=== PATIENT | male | born 1950 | race Caucasian/White ===

== ENCOUNTER → 2017-09-06 09:05 | Outpatient (CLI) | payer MEDICARE, MEDICAID, SELFPAY ==
[2017-09-06 09:26] LABS: Blood Urea Nitrogen 23 mg/dL (7-18); Estimated Glomerular Filt Rate 30 ml/min (>60); GFR (African American) 37 ML/MIN (>60)
--- NOTE | 2017-09-06 09:35 | MR_ITS ---
MR lumbar spine wo/w con, MR 3-d myelogram/MRCP HISTORY: PT states Low back pain X years. Prior surgery in 98'. Bilateral Leg pain, numbness, and tingling. ITS.REASON: FAILED BACK SYNDROME OF LUMBAR SPINE ORDERING PHYSICIAN: Surjit Maxwell PATIENT AGE: 66 years Comparison: None TECHNIQUE: Standard multiplanar multiecho sequences are performed without and with gadolinium enhancement. 3-D MIP and myelographic images are also rendered and reviewed FINDINGS: There is normal alignment. Prior posterior fusion with interpedicular screws at L4-L5 and S1 with disc spacers at L4-5 and L5-S1. Significant artifact is present from the surgical hardware injury evaluation at those levels. Spinal cord ends at the L1 level. T11-T12, T12-L1, L1-L2 to have an unremarkable appearance. L2-L3: Minimal concentric bulging disc. Mild facet and ligamentum flavum hypertrophy with mild disc desiccation. L3-L4: Mild degenerative disc disease with bulging disc along with facet hypertrophic change. There is transverse canal stenosis of 10 mm with moderate bilateral lateral recess narrowing on the left and mild right lateral recess narrowing. L4-L5: Artifact or prior surgery. L5-S1: Artifact from prior surgery No obvious enhancing lesions are evident. IMPRESSION: 1. Postsurgical changes of prior posterior fusion at L4-5 and L5-S1 with with significant artifact. 2. Degenerative disc disease with bulging disc at L3-L4 along with facet hypertrophic change with transverse canal stenosis of 10 mm with moderate bilateral lateral recess narrowing with moderate bilateral foraminal narrowing left greater than right. 3. No obvious enhancing abnormalities evident
--- NOTE | 2017-09-06 12:32 | HMH.ITSHM ---
CLONIDINE HYDRALAZINE AMITRIPTYLINE LISINOPRIL CLONAZEPAM SERTRALINE ATORVASTATIN CLOPIDOGREL METOPROLOL AMLODIPINE HYDROCHLOROTHIAZIDE NIACIN POTASSIUM ASPIRIN [facility]US NOV[facility]
== END ==
PROVIDERS: Family Provider Family Medicine; PCP Family Medicine; Visit Provider Physical Medicine & Rehabilitation
DX: M96.1 Postlaminectomy syndrome, not elsewhere classified (principal)
CPT/HCPCS: 36415; 72158; 76376; 82565; 84520; A9576

== ENCOUNTER → 2018-10-24 12:44 | Outpatient (CLI) | payer MEDICARE, MEDICAID, SELFPAY ==
--- NOTE | 2018-10-24 12:47 | MR_ITS ---
MR head/brain wo con HISTORY: ITS.REASON: HEADACHE ORDERING PHYSICIAN: Neena Lua APRN PATIENT AGE: 67 years Comparison: None TECHNIQUE: Standard multiplanar multiecho sequences are performed without contrast. FINDINGS: No midline shift, mass effect, intracranial hemorrhage, or hydrocephalus is evident. No evidence of acute infarction. T2 white matter hyperintensity noted in the periventricular regions consistent with ischemic gliotic change from microvascular disease. There is an area of encephalomalacia in the inferior aspect of the left frontal lobe focal atrophy in this region. The pituitary, optic chiasm, corpus callosum, and craniocervical junction are unremarkable. Upper cervical images show degenerative disc disease with bulging disc and canal stenosis at C3-C4 and C4-C5.. There is a small area of cystic encephalomalacia in the right aspect of the on this measuring 6 mm. Bilateral mastoid effusions are noted more extensive on the left. No sinus air-fluid levels are evident. IMPRESSION: 1. No acute intracranial findings. 2. Periventricular ischemic gliotic change, encephalomalacia left frontal lobe inferiorly, and small area of cystic encephalomalacia in the right aspect of shen 3. Bilateral mastoid sinus disease 4. Canal stenosis C3-C4 and C4-C5
== END ==
PROVIDERS: PCP Nurse Practitioner Family; Visit Provider Nurse Practitioner Family
DX: R51 Headache (principal)
CPT/HCPCS: 70551